=== PATIENT | male | born 1940 | race Hispanic/Latino ===

== ENCOUNTER 2017-03-08 18:30 | Emergency (ER) | payer MEDICARE ==
[2017-03-08] MEDS ORDERED: BOOSTRIX IM ONE ×2 (19:11→21:25)
--- NOTE | 2017-03-08 19:52 | Cat Scan Report ---
FINAL REPORT EXAM: CT HEAD/BRAIN WO CON HISTORY: s/p fall, large laceration on forehead TECHNIQUE: Contiguous axial images of the head were obtained without the use of intravenous contrast. PRIORS: None. FINDINGS: There is a laceration of the right forehead. The cerebral hemispheres are without focal lesions. There is no evidence of acute infarct or intracranial hemorrhage. There is no mass lesion or mass effect. There are no abnormal extra-axial fluid collections. The ventricles and sulci are prominent consistent with generalized loss of brain substance, appropriate for age. There is deep white matter lucency consistent with a mild degree of chronic microvascular ischemic disease. The visualized skull and orbits are unremarkable. The visualized paranasal sinuses are clear. IMPRESSION: 1. No evidence of acute infarct or intracranial hemorrhage. 2. White matter lucency consistent with a mild degree of chronic microvascular ischemic disease. 3. Right forehead laceration without evidence of skull fracture.
--- NOTE | 2017-03-08 20:00 | Cat Scan Report ---
FINAL REPORT EXAM: CT CERVICAL SPINE WO CON HISTORY: s/p fall large laceration, neck pain TECHNIQUE: Helical axial CT imaging of the cervical spine. Images are reconstructed in the sagittal and coronal planes. PRIORS: None. FINDINGS: The vertebral bodies are normal in height. There is no evidence of fracture or subluxation. There is multilevel degenerative disc and facet disease. There is severe loss of disc height at C5-6 and C6-7. There is atherosclerotic calcification in the carotid bulbs. The paraspinous soft tissues are unremarkable. IMPRESSION: No evidence of acute fracture or subluxation. Multilevel degenerative disc and facet disease Carotid bulb atherosclerosis
--- NOTE | 2017-03-08 20:36 | Emergency Department Report ---
ED Head Trauma HPI - General Chief complaint: Fall Stated complaint: FORHEAD LACERATION Time Seen by Provider: 03/08/17 19:10 Source: patient Mode of arrival: Wheelchair Limitations: No Limitations - History of Present Illness Initial comments: 76-year-old male past medical history none presents with complaint of laceration to anterior forehead. Patient states that he accidentally tripped on a small flight of steps in his home. Fall was witnessed by his son is with him at the time. He states he hit his head on ground and began bleeding afterward. Patient has visible 2 inch laceration above right eyebrow. Denies any discrete loss of consciousness denies any neck pain. Denies any chest pain abdominal pain and shortness of breath. Patient is awake alert and oriented 3 , cooperative and lucid. Patient is ambulatory without assistance. States that laceration on his forehead and has been bleeding persistently. Patient denies being on any anticoagulants MD Complaint: head injury -: This afternoon Mechanism of Injury: mechanical fall Location: frontal Loss of Consciousness: no Previous Trauma to this Area: No Place: home Severity: moderate Severity scale (0 -10): 6 Quality: aching Consistency: intermittent Other Injuries: laceration Associated Symptoms: denies other symptoms - Related Data Previous Rx's Medication Instructions Recorded Last Taken Type Acetaminophen [Acetaminophen TAB] 500 mg PO Q6HR PRN #25 tablet 03/08/17 Unknown Rx Acetaminophen/Codeine [Tylenol 1 tab PO Q6H PRN #6 tab 03/08/17 Unknown Rx /Codeine # 3 tab] Cephalexin [Keflex] 500 mg PO Q12HR #10 cap 03/08/17 Unknown Rx Neomycn/Baci Zn/Pmyx Bs/Pramox 1 applicatio TP BID #1 oint...g. 03/08/17 Unknown Rx [Triple Antibioti-Pain Rlf Oint] Allergies/Adverse reactions: Allergies Allergy/AdvReac Type Severity Reaction Status Date / Time No Known Allergies Allergy Verified 03/08/17 21:26 ED Review of Systems ROS: Stated complaint: FORHEAD LACERATION Other details as noted in HPI ED Past Medical Hx - Past Medical History Previous Medical History?: No - Surgical History Additional Surgical History: unknown - Social History Smoking Status: Former Smoker Substance Use Type: Alcohol - Medications Home Medications: Home Medications Medication Instructions Recorded Confirmed Last Taken Type Acetaminophen [Acetaminophen TAB] 500 mg PO Q6HR PRN #25 tablet 03/08/17 Unknown Rx Acetaminophen/Codeine [Tylenol 1 tab PO Q6H PRN #6 tab 03/08/17 Unknown Rx /Codeine # 3 tab] Cephalexin [Keflex] 500 mg PO Q12HR #10 cap 03/08/17 Unknown Rx Neomycn/Baci Zn/Pmyx Bs/Pramox 1 applicatio TP BID #1 oint...g. 03/08/17 Unknown Rx [Triple Antibioti-Pain Rlf Oint] ED Physical Exam - General Limitations: No Limitations General appearance: alert, in no apparent distress - Expanded Head Exam Expanded Head exam: Present: laceration (patient has a 3 cm laceration diagonal above right eyebrow) 1 - diagonal laceration here, 3-4 cm, exposed bone - Eye Eye exam: Present: normal appearance - ENT ENT exam: Present: mucous membranes moist - Neck Neck exam: Present: normal inspection - Respiratory Respiratory exam: Present: normal lung sounds bilaterally. Absent: respiratory distress - Cardiovascular Cardiovascular Exam: Present: regular rate, normal rhythm. Absent: systolic murmur, diastolic murmur, rubs, gallop - GI/Abdominal GI/Abdominal exam: Present: soft, normal bowel sounds - Rectal Rectal exam: Present: deferred - Extremities Exam Extremities exam: Present: normal inspection - Back Exam Back exam: Present: normal inspection - Neurological Exam Neurological exam: Present: alert, oriented X3 - Psychiatric Psychiatric exam: Present: normal affect, normal mood - Skin Skin exam: Present: warm, dry, intact, normal color. Absent: rash ED Course Vital Signs 03/08/17 18:53 Temperature 97.8 F Pulse Rate 64 Respiratory 16 Rate Blood Pressure 161/74 O2 Sat by Pulse 98 Oximetry - Laceration /Wound Repair Right Face Wound Location: face Wound Length (cm): 4 Wound's Depth, Shape: linear Wound Explored: clean Irrigated w/ Saline (ccs): 100 Betadine Prep?: Yes Anesthesia: Lidocaine w/ Epi Volume Anesthetic (ccs): 6 Wound Debrided: minimal Wound Repaired With: sutures Suture Size/Type: 4:0, proline Number of Sutures: 5 Layer Closure?: Yes Deep Layer Suture Size/Type: 3:0, chromic Number Deep Layer Sutures: 3 Sterile Dressing Applied?: Yes (triple abx w/ gauze) Progress: Procedure tolerated well, moderate bleeding. After sutures were placed and stopped bleeding. Some associated swelling area. Good closure achieved. Labwork with triple antibiotic ointment on top of suture sites. - Medical Decision Making A/P: Forehead Laceration, post concussion cautions 1- sutures to be removed in 7 days 2- tetanus updated 3- Tylenol when necessary, triple antibiotic ointment, short course keflex 4- pt advised to return to the ED for any fevers chills pus drainage erythema at site of laceration 5- patient has no cranial nerve deficits is ambulatory. Lucid and has unremarkable CT of head and C-spine. I advised patient and his son on postconcussive symptoms. I advised him to return to the ED if he experiences confusion and extreme agitation and lethargy persistent nausea and vomiting. - NEXUS Criteria Focal neurological deficit present: No Midline spinal tenderness present: No Altered level of consciousness: No Intoxication present: No Distracting injury present: Yes (large forehead laceration) NEXUS results: C-Spine cannot be cleared clinically by these results. Imaging is required. Critical care attestation.: If time is entered above; I have spent that time in minutes in the direct care of this critically ill patient, excluding procedure time. ED Disposition Clinical Impression: Forehead laceration Qualifiers: Encounter type: initial encounter Qualified Code(s): S01.81XA - Laceration without foreign body of other part of head, initial encounter Fall Qualifiers: Encounter type: initial encounter Qualified Code(s): W19.XXXA - Unspecified fall, initial encounter Disposition: - TO HOME OR SELFCARE Is pt being admited?: No Does the pt Need Aspirin: No Condition: Stable Instructions: Laceration (ED), Suture Care (ED), Post Concussion Syndrome (ED) Prescriptions: Acetaminophen [Acetaminophen TAB] 500 mg PO Q6HR PRN #25 tablet PRN Reason: Headache Acetaminophen/Codeine [Tylenol /Codeine # 3 tab] 1 tab PO Q6H PRN #6 tab PRN Reason: Pain Cephalexin [Keflex] 500 mg PO Q12HR #10 cap Neomycn/Baci Zn/Pmyx Bs/Pramox [Triple Antibioti-Pain Rlf Oint] 1 applicatio TP BID #1 oint...g. Referrals: [facility] [Outside] - 3-5 Days Forms: Accompanied Note Time of Disposition: 23:41
[2017-03-08] MEDS ORDERED: TYLENOL PO ONE (20:59)
[2017-03-08] MEDS ORDERED: XYLOCAINE 2%/EPI 1:100,000 INFILTRATI ONE (20:59)
[2017-03-08] MEDS ORDERED: TRIPLE ANTIBIOTIC TP ONE (21:00)
[2017-03-09 00:12] VITALS: BP 123/73
== END 2017-03-09 00:09 | disposition home or self-care (01) ==
LOC: ED 18:30
DX: S01.81XA Laceration without foreign body of other part of head, initial encounter (principal); Z87.891 Personal history of nicotine dependence; W18.30XA Fall on same level, unspecified, initial encounter; Y93.9 Activity, unspecified; Y92.9 Unspecified place or not applicable; Y99.9 Unspecified external cause status
CPT/HCPCS: 70450; 72125; 90471; 90715; A6250

== ENCOUNTER 2020-06-06 17:15 | Emergency (ER) | payer MEDICARE ==
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
[2020-06-06 22:12] VITALS: BP 131/53
== END 2020-06-06 22:05 | disposition home or self-care (01) ==
LOC: ED 17:15
DX: S09.90XA Unspecified injury of head, initial encounter (principal); S00.33XA Contusion of nose, initial encounter; I10 Essential (primary) hypertension; F03.90 Unspecified dementia, unspecified severity, without behavioral disturbance, psychotic disturbance, mood disturbance, and anxiety; Z79.899 Other long term (current) drug therapy; Y04.2XXA Assault by strike against or bumped into by another person, initial encounter; Y93.89 Activity, other specified; Y92.410 Unspecified street and highway as the place of occurrence of the external cause; Y99.8 Other external cause status
CPT/HCPCS: 70450